=== PATIENT | female | born 1975 | race Caucasian/White ===

== ENCOUNTER 2016-11-22 06:14 | Day surgery (SDC) | payer OTHER ==
[2016-11-20 19:47] VITALS: BMI 24.3
[2016-11-22] MEDS ORDERED: ROPIVACAINE HCL 0.5% 30ML VIAL ONE (07:22)
[2016-11-22] MEDS ORDERED: MIDAZOLAM HCL 2 MG/2 ML SINGLE DOSE VIAL ONE ×2 (07:25)
[2016-11-22] MEDS ORDERED: SUCCINYLCHOLINE CHLORIDE 200 MG/10 ML VIAL ONE (08:17)
[2016-11-22] MEDS ORDERED: PROPOFOL 20 ML ONE (08:17)
--- NOTE | 2016-11-22 08:45 | HP ---
Satellite [facility] - Chief Complaint Chief Complaint: right knee pain - Past Medical History Allergies/Adverse Reactions: Allergies Allergy/AdvReac Type Severity Reaction Status Date / Time No Known Allergies Allergy Verified 11/22/16 06:46 ...LMP: 10/17/16 ...LMP Comment: NOT REGULAR - Current Medications Current Medications: Home Medications Medication Instructions Recorded Ibuprofen [Advil -] 200 mg PO PRN PRN 11/22/16 Oxycodone HCl/Acetaminophen 1 - 2 tab PO Q6H #50 tab MDD 8 11/22/16 [Percocet 5-325 mg Tablet -] Satellite Physical Exam - Physical Examination Vital Signs: Vital Signs Period Temp Pulse Resp BP Sys/Freitas Pulse Ox Last 24 Hr 98.0 F 62 20 112/67 100 General Appearance: Well Nourished, Well Developed, Alert & Oriented x3 ENT: Clear Lung: Normal air movement Heart: Regular rate & rhythm Extremities: Other (right knee- + swelling, + ttp ,shahzad rom, nvi MRI + partial acl) Neurological: Intact, Alert, Oriented Satellite Impression/Plan - Impression/Plan Impression: right knee internal derangement Operative Procedure: right knee arthroscopy with possible ACL reconstruction Date to be Performed: 11/22/16
--- NOTE | 2016-11-22 08:46 | OP ---
Operative Note - Note: Operative Date: 11/22/16 ([facility]) Pre-Operative Diagnosis: right knee internal derangement Operation: right knee arthroscopy ACL repair with thermal shrinkage Post-Operative Diagnosis: Same as Pre-op Surgeon: Sammy Willingham Anesthesiologist/WEAVING INSTRUCTOR: Sherrie Diop MD Anesthesia: General, Local Specimens Removed: shavings Estimated Blood Loss (mls): 5 Operative Report Dictated: Yes
[2016-11-22 10:10] VITALS: TEMP 97.8
[2016-11-22] MEDS ORDERED: ONDANSETRON 4 MG/2 ML VIAL IVPUSH PRN (10:15)
[2016-11-22] MEDS ORDERED: oxyCODONE HCL 5 MG TABLET PO PRN (10:15)
[2016-11-22] MEDS ORDERED: PROMETHAZINE HCL 25 MG/1 ML VIAL IVPUSH PRN (10:15)
--- NOTE | 2016-11-22 10:16 | OP ---
DATE OF OPERATION: 11/22/2016 PREOPERATIVE DIAGNOSIS: Internal derangement, right knee. POSTOPERATIVE DIAGNOSIS: Internal derangement, right knee. PROCEDURE: Arthroscopy, right knee, with anterior cruciate ligament repair via thermal shrinkage. SURGICAL ATTENDING: Sammy Willingham MD ANESTHESIA: General LMA. CLOSURE: 4-0 nylon. COMPLICATIONS: None. CONDITION: To recovery room in stable condition. DESCRIPTION OF OPERATIVE PROCEDURE: The patient was taken to the operating room on November 22, 2016. General anesthesia as well as adductor canal block was administered by the anesthesiologist. The right lower extremity was prepped and draped in the usual sterile fashion. The preoperative examination revealed negative pivot shift and 1+ anterior drawer negative posterior drawer. Superolateral, mediolateral, infrapatellar portal sites were infiltrated with 1% Xylocaine with epinephrine. Superolateral portal was made with a 15-blade followed by a blunt trocar. The knee was aspirated and inflated with cocktail 10 mL of 1% Xylocaine, 10 mL of 0.5% Marcaine, and 20 mL of arthroscopic saline. Medial and lateral infrapatellar portals were then made with the 15-blade followed by a blunt trocar. The scope was placed in the lateral infrapatellar portal and up into the suprapatellar pouch. Pouch was visualized to be clean. The medial and lateral gutters were visualized to be clean. The undersurface of the patella and trochlea were visualized, probed, found to be intact. With valgus stress on the knee, the medial compartment was entered. The medial meniscus was visualized and found to be intact. The medial femoral condyle was run and found to be intact as was the medial tibial plateau. In the figure 4 position, lateral compartment was entered. Lateral meniscus was visualized, probed, and found to be intact. Lateral femoral condyle was run and found to be intact, as was the lateral tibial plateau. At 90 degrees, Some fibrous tissue in and around the notch was debrided exposing the ACL. The ACL was found to have had a partial tear. Posterior fibers were still intact. Anterior fibers were loose and partially detached. The PCL was intact. Probing on the ACL revealed that it did take up tension, but part of it was looser than it should be. It was therefore decided to shrink these fibers. The ArthroCare on its lowest setting was used to thermally shrink these fibers, tightening them up. Probing after the shrinkage revealed good tension of the ACL. The knee was irrigated and drained of its fluid. The portals were closed with 3-0 nylon. A sterile pressure dressing was placed over the knee. Patient awakened from anesthesia and transferred to recovery in stable condition. No complications. Estimated blood loss negligible. Cong [id number]
[2016-11-22 13:29] VITALS: BP 127/67; PULSE 75
--- NOTE | 2016-11-29 11:18 | PATH ---
Surgical Pathology Report Patient Name: ANGELA MARTINEZ [facility]. Rec. #: [id number] /Age/Gender: 1975 (Age: 41) / F Account: [id number] Location: [facility] SURGICAL Taken: 11/22/2016 Received: 11/22/2016 Reported: 11/23/2016 Physicians: Sammy Willingham M.D. Specimen(s) Received SHAVINGS RIGHT KNEE Clinical History Right knee ACL tear Final Diagnosis SOFT TISSUE, RIGHT KNEE, ARTHROSCOPIC SHAVINGS: SYNOVIUM AND FIBROCARTILAGE WITH MYXOHYALINE DEGENERATION. Electronically Signed Main Holden M.D. Gross Description Received in formalin, labeled "right knee shavings" is a 3.0 x 2.1 x 0.3 cm aggregate of [place]-yellow soft tissue fragments. A high school admissions representative portion is submitted in one cassette. /11/22/201611/22/2016
== END 2016-11-22 12:15 | disposition home or self-care (01) ==
LOC: JASU-SURG 06:14
PROVIDERS: ATTEND Orthopaedic Surgery
PROC: [UNRECOGNIZED PROCEDURE] (principal; 2016-11-22 08:00)
DX: S83.511A Sprain of anterior cruciate ligament of right knee, initial encounter (principal); X58.XXXA Exposure to other specified factors, initial encounter; Y93.9 Activity, unspecified; Y92.9 Unspecified place or not applicable
CPT/HCPCS: 84703; 88304-TC; 94760; 97116-GP